=== PATIENT | male | born 2000 | race American Indian/Alaskan Native ===

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

== ENCOUNTER 2020-09-22 17:13 | Observation (INO) | payer OTHER ==
[2020-09-22] MEDS ORDERED: IPRATROPIUM/ALBUTEROL SULFATE 3 ML AMPUL.NEB IH ONE ×2 (17:37→20:05)
--- NOTE | 2020-09-22 17:39 | Emergency Department Report ---
ED Shortness of Breath HPI - General Chief Complaint: Adult Asthma Stated Complaint: TRUNG Time Seen by Provider: 09/22/20 17:35 Source: patient Mode of arrival: Stretcher Limitations: No Limitations - History of Present Illness Initial Comments: Patient is a 20-year-old male that presents emergency room with complaints of asthma attack and shortness of breath. Patient states his symptoms started 2 days ago. Patient states his symptoms are worsening. Patient states that his rescue inhaler at home is not working. Patient states inhaler multiple times. Patient denies chest pain. Patient denies fever chills. Patient complains of a dry cough. Patient brought in by EMS. Report received from EMS. Report received from EMS: EMS states that the patient was 90% on room air placed on 2 L. Patient was given mag, epi, albuterol, Solu-Medrol and transported to the hospital. Patient denies recent travel. Patient denies recent international travel. Patient denies exposure to the novel coronavirus. Patient denies sick contacts. Patient denies fever and chills. Patient denies loss of smell. Patient denies diarrhea. Patient denies coming in contact with anybody with symptoms of the novel coronavirus. Complaint: shortness of breath, "asthma attack" Severity: severe Consistency: constant Improves With: rest Worsens With: exertion, medication Known History Of: asthma Context: allergen exposure Associated Symptoms: cough Treatments Prior to Arrival: oxygen, bronchodilator, other - Related Data Home Oxygen Therapy: No Allergies Allergy/AdvReac Type Severity Reaction Status Date / Time No Known Allergies Allergy Unverified 02/12/17 02:45 ED Review of Systems ROS: Stated complaint: TRUNG Other details as noted in HPI Constitutional: denies: chills, fever Eyes: denies: eye pain, eye discharge, vision change ENT: denies: ear pain, throat pain Respiratory: see HPI, cough, shortness of breath, SOB with exertion, SOB at rest, wheezing Cardiovascular: denies: chest pain, palpitations Endocrine: no symptoms reported Gastrointestinal: denies: abdominal pain, nausea, diarrhea Genitourinary: denies: urgency, dysuria Musculoskeletal: denies: back pain, joint swelling, arthralgia Skin: denies: rash, lesions Neurological: denies: headache, weakness, paresthesias Psychiatric: denies: anxiety, depression Hematological/Lymphatic: denies: easy bleeding, easy bruising ED Past Medical Hx - Past Medical History Previous Medical History?: Yes Hx Asthma: Yes - Surgical History Past Surgical History?: No - Family History Family history: no significant - Social History Smoking Status: Never Smoker Substance Use Type: None ED Physical Exam - General Limitations: No Limitations General appearance: alert, in no apparent distress - Head Head exam: Present: atraumatic, normocephalic - Eye Eye exam: Present: normal appearance - ENT ENT exam: Present: mucous membranes moist - Neck Neck exam: Present: normal inspection - Respiratory Respiratory exam: Present: respiratory distress, wheezes, accessory muscle use. Absent: rales - Cardiovascular Cardiovascular Exam: Present: regular rate, normal rhythm. Absent: systolic murmur, diastolic murmur, rubs, gallop - GI/Abdominal GI/Abdominal exam: Present: soft, normal bowel sounds - Rectal Rectal exam: Present: deferred - Extremities Exam Extremities exam: Present: normal inspection - Back Exam Back exam: Present: normal inspection - Neurological Exam Neurological exam: Present: alert, oriented X3 - Psychiatric Psychiatric exam: Present: normal affect, normal mood - Skin Skin exam: Present: warm, dry, intact, normal color. Absent: rash ED Course Vital Signs 09/22/20 09/22/20 17:21 17:22 Temperature 100.9 F H Pulse Rate 117 H Respiratory 20 Rate Blood Pressure 125/82 [Right] O2 Sat by Pulse 97 97 Oximetry - Reevaluation(s) Reevaluation #1: Patient taken off of the oxygen his oxygen saturation dropped to 91%. Patient placed back on 4 L. Patient's oxygen saturation improved to 96%. 09/22/20 18:15 Reevaluation #2: Patient's oxygen was removed again and his oxygen saturation dropped to 90%. Patient was placed back on 4 L and his oxygen saturation improved. Patient states he is feeling a little better. I discussed all results with patient. I discussed plan of care with patient. Patient agrees with plan of care and admission. Patient to be admitted to the hospitalist service. 09/22/20 19:01 - Consultations Consultation #1: Hospitalist consulted for admission. Hospitalist to admit patient. 09/22/20 19:16 ED Medical Decision Making - Lab Data Result diagrams: 09/22/20 17:51 09/22/20 17:51 - Radiology Data Radiology results: report reviewed, image reviewed interpreted by me: Chest x-ray: No pneumonia, no pneumothorax, no foreign body, no osseous findings, no acute findings CHEST 1 VIEW INDICATION: sob COMPARISON: None FINDINGS: Support devices: None Heart: Normal Lungs/Pleura: No acute pulmonary or pleural findings. Lung volumes are normal. IMPRESSION: 1. No acute disease. - Medical Decision Making Patient is a 20-year-old male who presents emergency room with complaints of shortness of breath, respiratory distress, hypoxia and status asthmaticus and wheezing and cough. Patient given multiple medications prior to arrival by EMS to include oxygen, Solu-Medrol, magnesium, epinephrine, albuterol. Patient was given a DuoNeb upon arrival. Patient states he feels better however the patient still required oxygen support for the entire time in ER. Patient oxygen removed twice with the patient desatted both times. Patient placed on 4 L which maintained his 96 to 98%. Patient had labs done which were essentially unremarkable except for elevated WBC elevated which is most likely secondary to steroid administration by EMS. Patient had a chest x-ray which was negative for acute finding. Personally reviewed the chest x-ray. Patient admitted to the hospital service for further evaluation and treatment. Critical care time documented due to the multiple reassessments, prolonged time at the bedside, interpretation of diagnostics and labs. - Differential Diagnosis Shortness of breath, asthma laceration, status asthmaticus, respiratory pastora Critical Care Time: Yes Critical care time in (mins) excluding proc time.: 35 Critical care attestation.: If time is entered above; I have spent that time in minutes in the direct care of this critically ill patient, excluding procedure time. Critical Care Time: 35 minutes ED Disposition Clinical Impression: Shortness of breath Respiratory failure Qualifiers: Chronicity: acute Respiratory failure complication: hypoxia Qualified Code(s): J96.01 - Acute respiratory failure with hypoxia Status asthmaticus Qualifiers: Asthma severity: severe Asthma persistence: unspecified Qualified Code(s): J45.902 - Unspecified asthma with status asthmaticus Disposition: DC-09 OP ADMIT IP TO THIS HOSP Is pt being admited?: Yes Does the pt Need Aspirin: No Condition: Critical Time of Disposition: 19:18
[2020-09-22 18:02] LABS: Hematocrit 43.2 % (35.5-45.6); Hemoglobin 14.6 gm/dl (11.8-15.2); Mean Corpuscular HGB Conc 34 % (32-34); Mean Corpuscular Volume 90 fl (84-94); Platelet Count 200 K/mm3 (140-440); Red Blood Count 4.82 M/mm3 (3.65-5.03); Red Cell Distribution Width 12.7 % (13.2-15.2)
--- NOTE | 2020-09-22 18:12 | XRay Report ---
CHEST 1 VIEW INDICATION: sob COMPARISON: None FINDINGS: Support devices: None Heart: Normal Lungs/Pleura: No acute pulmonary or pleural findings. Lung volumes are normal. IMPRESSION: 1. No acute disease. Signer Name: Samuel Vides MD Signed: 09/22/2020 6:07 PM Workstation Name: [email or web address]
[2020-09-22 18:28] LABS: Alanine Aminotransferase 28 units/L (7-56); Albumin 4.3 g/dL (3.9-5); BUN/Creatinine Ratio 9; Blood Urea Nitrogen 9 mg/dL (9-20); Calcium 8.8 mg/dL (8.4-10.2); Hemolysis Index 41
[2020-09-22 18:58] LABS: Total Cells Counted 100
[2020-09-22 18:59] LABS: Platelet Estimate Consistent w Auto; RBC Morphology Normal; Toxic Granulation 2+
--- NOTE | 2020-09-22 21:02 | History and Physical Report ---
History of Present Illness Date of examination: 09/22/20 Date of admission: 09/22/20 20:39 Chief complaint: asthma flair up History of present illness: Patient is a 20-year-old male that presents emergency room with complaints of asthma attack and shortness of breath. Patient states his symptoms started 2 days ago. Patient states his symptoms are worsening. Patient states that his rescue inhaler at home is not working. Patient states inhaler multiple times. Patient denies chest pain. Patient denies fever chills. Patient complains of a dry cough. Patient brought in by EMS. Report received from EMS. Report received from EMS: EMS states that the patient was 90% on room air placed on 2 L. Patient was given mag, epi, albuterol, Solu-Medrol and transported to the hospital. ED work-up shows checks x-ray done no acute finding. WBC 18.4, hemoglobin 14.6, platelets 200, potassium 3.3, sodium level 137 serum glucose 156 creatinine 1.0. Patient is seen in the ED on oxygen. Patient reported history of asthma flareup. He said he usually have his albuterol and it will resolve normally but this time after giving himself treatments his condition was still worsening. Presently patient is resting well on oxygen via nasal cannula. Longstanding much better but still diminished. Patient is not in acute distress. Possible discharge in the morning if stable Past History Past Medical History: other (asthma) Past Surgical History: No surgical history Social history: no significant social history Family history: no significant family history Medications and Allergies Allergies Allergy/AdvReac Type Severity Reaction Status Date / Time No Known Allergies Allergy Verified 09/22/20 21:16 Review of Systems Ears, nose, mouth and throat: no epistaxis, no bleeding gums Cardiovascular: shortness of breath Respiratory: wheezing Gastrointestinal: no melena Rectal: no hemorrhoids Neurological: no convulsions Psychiatric: no suicidal ideation, no disorientation Hematologic/Lymphatic: no easy bruising, no easy bleeding Allergic/Immunologic: no urticaria Exam - Constitutional Vitals: Temp Pulse Resp BP Pulse Ox 99.6 F 109 H 20 125/67 95 09/22/20 19:35 09/22/20 20:31 09/22/20 20:31 09/22/20 20:31 09/22/20 20:31 General appearance: Present: mild distress, well-nourished - EENT Eyes: Present: PERRL ENT: hearing intact, clear oral mucosa - Neck Neck: Present: supple, normal ROM - Respiratory Respiratory effort: normal Respiratory: bilateral: CTA - Cardiovascular Heart Sounds: Present: S1 & S2. Absent: rub, click - Extremities Extremities: pulses symmetrical, No edema Peripheral Pulses: within normal limits - Abdominal General gastrointestinal: Present: soft, non-tender, non-distended, normal bowel sounds Male genitourinary: Present: normal - Integumentary Integumentary: Present: clear, warm, dry - Musculoskeletal Musculoskeletal: gait normal, strength equal bilaterally - Psychiatric Psychiatric: appropriate mood/affect, intact judgment & insight - Neurologic Neurologic: CNII-XII intact, moves all extremities - Allied Health Allied health notes reviewed: nursing Results - Labs CBC & Chem 7: 09/22/20 17:51 09/22/20 17:51 Labs: Abnormal lab results 09/22/20 09/22/20 Range/Units 17:51 17:51 WBC 18.4 H (4.5-11.0) K/mm3 RDW 12.7 L (13.2-15.2) % Seg Neuts % (Manual) 98.0 H (40.0-70.0) % Lymphocytes % (Manual) 1.0 L (13.4-35.0) % Seg Neutrophils # Man 18.0 H (1.8-7.7) K/mm3 Lymphocytes # (Manual) 0.2 L (1.2-5.4) K/mm3 Potassium 3.3 L (3.6-5.0) mmol/L Carbon Dioxide 19 L (22-30) mmol/L Glucose 156 H (75-100) mg/dL Total Bilirubin 1.70 H (0.1-1.2) mg/dL Assessment and Plan - Patient Problems (1) Status asthmaticus Current Visit: Yes Status: Acute Qualifiers: Asthma severity: severe Asthma persistence: unspecified Qualified Code(s) : J45.902 - Unspecified asthma with status asthmaticus Plan to address problem: Continue current respiratory care Bronchodilators and oxygen supplement. (2) Respiratory failure Current Visit: Yes Status: Acute Qualifiers: Chronicity: acute Respiratory failure complication: hypoxia Qualified Code(s): J96.01 - Acute respiratory failure with hypoxia Plan to address problem: Secondary to asthma flareup Continue current respiratory care Serial ABGpossible discharge tomorrow if stable (3) Leukocytosis Current Visit: Yes Status: Acute Plan to address problem: Likely secondary to systemic steroid Patient has no evidence of sepsis Monitor WBC (4) Hypokalemia Current Visit: Yes Status: Acute Plan to address problem: Replace potassium Check potassium level in the morning
[2020-09-22] MEDS ORDERED: MAGNESIUM HYDROXIDE (MOM) ORAL LIQD UDC PO PRN (21:09)
[2020-09-22] MEDS ORDERED: METOCLOPRAMIDE 10 MG/2 ML INJ IV PRN (21:09)
[2020-09-22] MEDS ORDERED: ONDANSETRON 4 MG/2 ML INJ IV PRN (21:09)
[2020-09-22] MEDS ORDERED: ALUM-MAG HYDROXIDE-SIMETHICONE 200-200-20MG/5ML ORAL LIQD 30 ML PO PRN (21:09)
[2020-09-22] MEDS ORDERED: ACETAMINOPHEN 325 MG TAB PO PRN (21:09)
[2020-09-22] MEDS ORDERED: POTASSIUM CHLORIDE ER 20 MEQ TAB PO ONE ×2 (21:11→22:00)
[2020-09-23 05:04] LABS: Hematocrit 44.3 % (35.5-45.6); Hemoglobin 15.1 gm/dl (11.8-15.2); Mean Corpuscular HGB Conc 34 % (32-34); Mean Corpuscular Volume 90 fl (84-94); Platelet Count 186 K/mm3 (140-440); Red Blood Count 4.95 M/mm3 (3.65-5.03); Red Cell Distribution Width 12.7 % (13.2-15.2)
[2020-09-23 05:31] LABS: Alanine Aminotransferase 29 units/L (7-56); Albumin 5.2 g/dL (3.9-5); BUN/Creatinine Ratio 13; Blood Urea Nitrogen 12 mg/dL (9-20); Calcium 10.4 mg/dL (8.4-10.2); Hemolysis Index 2
[2020-09-23 07:03] LABS: Total Cells Counted 100
[2020-09-23 07:05] LABS: Large Platelets Rare; Platelet Estimate Consistent w Auto; RBC Morphology Normal
[2020-09-23] MEDS ORDERED: IPRATROPIUM/ALBUTEROL SULFATE 3 ML AMPUL.NEB IH SCH (12:00)
--- NOTE | 2020-09-23 16:56 | Discharge Summary ---
Providers - Providers Date of Admission: 09/22/20 20:39 Date of discharge: 09/23/20 Attending physician: MATTHEW JONES Patient feels better today. Only mild wheezing. Was able to keep saturations at 92% even though he was walking. Patient does not have any cough denies any chest pain. Shortness of breath some with exertion. Primary care physician: [employer] Hospitalization Condition: Good Hospital course: 20-year-old presents with asthma exacerbation. This is only patient's second admission for asthma the last when he was 8 years old. Patient feels good. Patient able to walk and maintain sats above 93%. Still somewhat short of breath. Should not walk should avoid cold air. Should not return to work until Sunday. Nebulizers 3 times a day steroids and will continue antibiotics for acute bronchitis. Disposition: DC-01 TO HOME OR SELFCARE Final Discharge Diagnosis (Prints w/discharge instructions): Acute respiratory failure secondary to status asthmaticus. - Discharge Diagnoses (1) Respiratory failure Status: Acute Qualifiers: Chronicity: acute Respiratory failure complication: hypoxia Qualified Code(s): J96.01 - Acute respiratory failure with hypoxia Comment: Secondary to asthma exacerbation. Patient known to myself will write a prescription for prednisone taper as well as Z-Jhony. And albuterol nebs to take every 8 hours. Patient can follow-up my office in 5 days. (2) Shortness of breath Status: Acute (3) Status asthmaticus Status: Acute Qualifiers: Asthma severity: severe Asthma persistence: unspecified Qualified Code(s): J45.902 - Unspecified asthma with status asthmaticus Core Measure Documentation - Palliative Care Palliative Care/ Comfort Measures: Not Applicable - Core Measures Any of the following diagnoses?: none Exam - Constitutional Vitals: Temp Pulse Resp BP Pulse Ox 98.0 F 73 18 112/55 93 09/23/20 08:25 09/23/20 13:25 09/23/20 13:25 09/23/20 08:25 09/23/20 08:25 General appearance: Present: no acute distress, well-nourished - EENT Eyes: Present: PERRL ENT: hearing intact, clear oral mucosa - Neck Neck: Present: supple, normal ROM - Respiratory Respiratory effort: normal Respiratory: bilateral: CTA, wheezing (mild) - Cardiovascular Heart Sounds: Present: S1 & S2. Absent: rub, click - Extremities Extremities: pulses symmetrical, No edema Peripheral Pulses: within normal limits - Abdominal General gastrointestinal: Present: soft, non-tender, non-distended, normal bowel sounds Male genitourinary: Present: normal - Integumentary Integumentary: Present: clear, warm, dry - Musculoskeletal Musculoskeletal: gait normal, strength equal bilaterally - Psychiatric Psychiatric: appropriate mood/affect, intact judgment & insight - Neurologic Neurologic: CNII-XII intact, moves all extremities Plan Activity: other (No exercise until Sunday) Weight Bearing Status: Full Weight Bearing Diet: regular Follow up with: PRIMARY CARE, [Primary Care Provider] - 7 Days
[2020-09-23 17:49] VITALS: BP 109/47
== END 2020-09-23 18:20 | disposition home or self-care (01) ==
LOC: ED 17:13 → 3A 20:39 → 4A 20:52
PROVIDERS: ADMIT Hospitalist; ATTEND Internal Medicine
DX: J96.01 Acute respiratory failure with hypoxia (principal); J45.902 Unspecified asthma with status asthmaticus; E87.6 Hypokalemia; D72.829 Elevated white blood cell count, unspecified
CPT/HCPCS: 36415; 71045; 80053; 85007; 85025; 94640; 94644; 99291; G0378